=== PATIENT | male | born 1975 | race Caucasian/White ===

== ENCOUNTER 2016-03-19 09:53 | Emergency (ER) | payer OTHER | END 2016-03-19 13:56 | disposition home or self-care (01) | DX: R07.89 Other chest pain (principal) ==

== ENCOUNTER 2017-02-24 11:50 | Emergency (ER) | payer OTHER ==
--- NOTE | 2017-02-24 12:38 | ED Physician Documentation ---
PD HPI HEENT - Stated complaint Stated Complaint: DIZZY - Chief complaint Chief Complaint: Neuro - History obtained from History obtained from: Patient - History of Present Illness Timing - onset: How many weeks ago (1) Timing - duration: Weeks (1) Timing - details: Abrupt onset, Still present, Waxing and waning Location: Other (feeling vertigo with head movement the past week. Seen at [facility] and given instructions for Saba movements. He was told to come to ED if not improved with these. He is not feeling any better and is feeling worse ( vertigo and now also feeling "out of it" - tired and sluggish).) Associated symptoms: No: Fever, Congestion, Rhinorrhea, Swollen nodes Similar symptoms before: Has not had sx before Recently seen: Clinic ([facility]) Review of Systems Constitutional: denies: Fever, Chills Eyes: denies: Loss of vision, Decreased vision Ears: denies: Loss of hearing, Ear pain, Drainage/discharge, Tinnitus/ringing Nose: denies: Rhinorrhea / runny nose, Congestion Throat: denies: Sore throat Respiratory: denies: Cough GI: reports: Nausea. denies: Vomiting, Diarrhea Neurologic: denies: Focal weakness, Difficulty speaking, Near syncope, Confused , Headache, Head injury Endocrine: denies: Weight loss Immunocompromised: denies: Immunocompromised PD PAST MEDICAL HISTORY - Past Medical History Past Medical History: Yes Cardiovascular: High cholesterol - Past Surgical History Past Surgical History: No - Present Medications Home Medications: Ambulatory Orders Medication Instructions Recorded Confirmed Cetirizine [ZyrTEC] 10 mg PO DAILY #20 tablet 02/24/17 Dexamethasone [Decadron] 4 mg PO DAILY #5 tablet 02/24/17 Meclizine [Antivert] 25 mg PO Q6H PRN #30 tablet 02/24/17 - Allergies Allergies/Adverse Reactions: Allergies Allergy/AdvReac Type Severity Reaction Status Date / Time No Known Drug Allergies Allergy Verified 02/24/17 11:55 - Social History Does the pt smoke?: No Smoking Status: Never smoker Does the pt drink ETOH?: No Does the pt have substance abuse?: No - Family History Family history: reports: Non contributory - Immunizations Immunizations are current?: Yes PD ED PE NORMAL - Vitals Vital signs reviewed: Yes - General General: Alert and oriented X 3, Well developed/nourished - HEENT HEENT: PERRL, EOMI (with nystagmus noted on rightward eye movement. 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, No motor deficit, No sensory deficit, Normal speech, Other Eye Opening: Spontaneous Motor: Obeys Commands Verbal: Oriented GCS Score: 15 - Psych Psych: Normal mood, Normal affect Results - Vitals Vitals: Vital Signs - 24 hr 02/24/17 02/24/17 02/24/17 11:52 14:15 15:30 Temperature 36.5 C Heart Rate 64 83 65 Respiratory 18 20 Rate Blood Pressure 133/81 H 130/74 123/88 H O2 Saturation 100 99 96 02/24/17 16:11 Temperature Heart Rate 76 Respiratory 16 Rate Blood Pressure 130/80 O2 Saturation 97 Oxygen O2 Source Room air - Labs Labs: Laboratory Tests 02/24/17 12:13 Sodium 139 Potassium 4.0 Chloride 100 L Carbon Dioxide 29 Anion Gap 10.0 BUN 16 Creatinine 0.9 Estimated GFR (MDRD) 93 Glucose 71 Calcium 9.5 Total Bilirubin 1.8 H AST 32 ALT 31 Alkaline Phosphatase 50 Total Protein 7.5 Albumin 4.3 Globulin 3.2 Albumin/Globulin Ratio 1.3 Lipase 36 - Rads (name of study) brain MRI Radiology: Prelim report reviewed (no intracranial abnormal. Thinning of wall in semicircular canal suggestive of possible dehiscence.) PD MEDICAL DECISION MAKING - ED course Complexity details: reviewed results, considered differential (seems like peripheral vertigo. Referred to ED by [facility] for evaluation. Can get some labs and MRI to ensure no central cause. ), d/w patient Departure - Departure Disposition: 01 Home, Self Care Clinical Impression: Vertigo Condition: Stable Record reviewed to determine appropriate education?: Yes Instructions: ED Vertigo Unspecified Follow-Up: Susy Alvarado MD [Primary Care Provider] - [facility] [place] [Provider Group] Prescriptions: Cetirizine [ZyrTEC] 10 mg PO DAILY #20 tablet Dexamethasone [Decadron] 4 mg PO DAILY #5 tablet Meclizine [Antivert] 25 mg PO Q6H PRN #30 tablet PRN Reason: Vertigo Comments: Decadron daily for inflammation of inner ear. Cetirizine for fluid pressure. Add Meclizine for vertigo symptoms. Follow up ENT next week, call Sunday for an appt. Discharge Date/Time: 02/24/17 16:29
[2017-02-24 12:54] LABS: ALBUMIN/GLOBULIN RATIO 1.3 (1.0-2.2); BILIRUBIN,TOTAL 1.8 mg/dL (0.2-1.0); CALCIUM 9.5 mg/dL (8.5-10.3); CREATININE 0.9 mg/dL (0.6-1.2); TOTAL PROTEIN 7.5 g/dL (6.7-8.2)
[2017-02-24] MEDS ORDERED: DEXAMETHASONE 10 MG/ML VIAL IVP STA (13:10)
[2017-02-24] MEDS ORDERED: MECLIZINE 12.5 MG TABLET PO STA (13:10)
--- NOTE | 2017-02-24 15:20 | MRI Preliminary Report ---
Exam: MRI BRAIN W/O Impression: No acute infarct, mass, or other discrete acute intracranial process identified. Question bilateral superior semicircular canal dehiscence, ENT follow-up suggested. SITE ID: [id number]
--- NOTE | 2017-02-24 15:33 | MRI Report ---
EXAM: MRI BRAIN WITHOUT CONTRAST COMPARISON: None. CLINICAL HISTORY: Several days of dizziness. TECHNIQUE: Multiplanar multisequence imaging is performed through the head without contrast. FINDINGS: Diffusion-weighted imaging shows no acute infarct. Gradient sequence shows no evident prior parenchymal hemorrhage. T2 FLAIR imaging shows minimal white matter T2 prolongation, no masses. No prior infarcts. Ventricula r size is normal. No posterior fossa masses. No prior posterior fossa infarcts. No abnormal elevated T1 signal in the brain parenchyma. No developmental anomalies. Pituitary fossa, clivus and foramen magnum are unremarkable. High-resolution images through the posterior fossa show no abnormality related to the right seventh o r eighth nerve complex. The right superior semicircular canal may be dehiscent, ENT follow-up suggest ed. Left IAC shows no masses. There may be left superior semicircular canal dehiscence. Visualized orbits, paranasal sinuses and mastoids are unremarkable. No petrous apex masses. IMPRESSION: No acute infarct, mass, or other discrete acute intracranial process identified. Question bilateral superior semicircular canal dehiscence, ENT follow-up suggested. Referring Provider Line: [phone] SITE ID: [id number]
[2017-02-24 16:12] VITALS: BP 130/80
== END 2017-02-24 16:29 | disposition home or self-care (01) ==
LOC: ED 11:50
DX: R42 Dizziness and giddiness (principal)
CPT/HCPCS: 36415; 70551; 80053; 83690; 93005; 96374; 99284; A9270